=== PATIENT | male | born 1950 | race Caucasian/White ===

== ENCOUNTER 2016-12-25 09:47 | Emergency (ER) | payer OTHER ==
[~2016-12-25] VITALS: Ht 165.1 cm; Wt 59.4 kg
[~2016-12-25 09:47] MED LIST: AMOXICILLIN875 MG PO; ANALGESIC325 M1 PO; ASPIRIN325 MG PO; CARDIZEM90 M1 PO; CARDIZEM90 MG PO; CENTRAVITES 501 EACH PO; CHEWABLE MULTI1 EAC1 PO; COREG12.5 M1 PO; COREG25 M1 PO; Coreg PO; DILANTIN100 MG PO; DILANTIN50 MG PO; ECOTRIN325 MG PO; KEPPRA1000 MG PO; KEPPRA500 MG PO; Keppra PO; LOPRESSOR50 MG PO; METOPROLOL SUCC50 MG PO; Thiamine,Vitamin B1 PO; ULTRAM50 MG PO; VITAMIN B-1100 MG PO; VITAMIN B1 PO; ZESTRIL2.5 MG PO; ZONEGRAN100 MG PO; Zestril,Prinivil PO; Zonegran PO
[2016-12-25] MEDS ORDERED: XARELTO15 MG PO (10:52)
[2016-12-25] MEDS ORDERED: KEFLEX500 MG PO (11:11)
[2016-12-25 11:23] VITALS: BP 117/96
== END 2016-12-25 11:25 | disposition home or self-care (01) ==
LOC: EME 09:47
DX: L03.113 Cellulitis of right upper limb (principal); G40.909 Epilepsy, unspecified, not intractable, without status epilepticus; F41.9 Anxiety disorder, unspecified; Z87.891 Personal history of nicotine dependence
CPT/HCPCS: 99281; 99283

== ENCOUNTER 2017-11-05 23:54 | Emergency (ER) | payer OTHER ==
[~2017-11-05] VITALS: Ht 165.1 cm; Wt 63.1 kg
[~2017-11-05 23:54] MED LIST changes: +KEFLEX500 MG PO; +XARELTO15 MG PO
[2017-11-06 01:16] LABS: HEMATOCRIT 42.9 % (38.0-50.0); HEMOGLOBIN 14.9 G/DL (12.5-16.6); MCH 31.2 PG (29.0-34.0); MCHC 34.7 G/DL (30.0-36.0); MCV 89.9 FL (86-99); PLATELET COUNT 142 K/uL (156-360); RBC DIS.WIDTH-SD 42.9 % (39-53); RED BLOOD COUNT 4.77 M/uL (4.00-5.50); WHITE BLOOD COUNT 5.8 K/uL (4.1-10.2)
[2017-11-06 01:26] LABS: CHLORIDE 109 mEq/L (99-109)
[2017-11-06 01:27] LABS: POTASSIUM 3.8 mEq/L (3.7-5.4); SODIUM 139 mEq/L (136-147)
[2017-11-06 01:28] LABS: GLUCOSE 86 mg/dL (70-99)
[2017-11-06 01:31] LABS: SERUM ETHYL ALCOHOL < 10 mg/dL
[2017-11-06 01:32] LABS: CREATININE 0.9 mg/dL (0.6-1.3); GFR ESTIMATE (CALCULATED) > 59 mL/min/ (58.99-99999)
[2017-11-06 01:33] LABS: UREA NITROGEN (BUN) 12 mg/dL (9-23)
[2017-11-06 01:43] LABS: INTER. NORMALIZED RATIO 1.1
[2017-11-06 01:45] LABS: PTT 32.4 SEC (25-37)
[2017-11-06 03:48] VITALS: BP 137/97
== END 2017-11-06 03:52 | disposition left against medical advice (07) ==
LOC: EME 23:54
PROVIDERS: Emergency Medicine
DX: G40.909 Epilepsy, unspecified, not intractable, without status epilepticus (principal); I48.91 Unspecified atrial fibrillation; Z79.01 Long term (current) use of anticoagulants; G93.0 Cerebral cysts; I10 Essential (primary) hypertension; F41.9 Anxiety disorder, unspecified; Z87.891 Personal history of nicotine dependence; Z79.82 Long term (current) use of aspirin
CPT/HCPCS: 70450; 80048; 85027; 85610; 85730; 93005; 99281; 99285; G0480; J7030